=== PATIENT | female | born 1970 | race Caucasian/White ===

== ENCOUNTER 2023-04-10 08:24 | Day surgery (SDC) | payer OTHER ==
[~2023-04-10] VITALS: Ht 154.9 cm; Wt 79.4 kg
[2023-04-10] MEDS ORDERED: MEPERIDINE 100 MG INJ. 100 MG/ML VIAL ONE (08:38)
[2023-04-10] MEDS ORDERED: MIDAZOLAM HCL 5 MG/5 ML VIAL ONE (08:38)
[2023-04-10] MEDS ORDERED: SIMETHICONE 40 MG/0.6 ML ML ONE (08:38)
[2023-04-10 12:24] VITALS: BP_SYST 138; PULSE 79; RESP 19; TEMP 97.8; O2SAT 96
== END 2023-04-10 10:23 | disposition home or self-care (01) ==
LOC: SDS 08:24 → SMU 08:32 → SDS 10:23
PROVIDERS: ATTEND Student in an Organized Health Care Education/Training Program
DX: R10.13 Epigastric pain (principal); K29.50 Unspecified chronic gastritis without bleeding; K29.80 Duodenitis without bleeding; K21.9 Gastro-esophageal reflux disease without esophagitis; K31.7 Polyp of stomach and duodenum; Z79.899 Other long term (current) drug therapy
CPT/HCPCS: 43239; 88305; 88312; 88313; G0378; J2250; J2175